=== PATIENT | male | born 1960 | race Caucasian/White ===

== ENCOUNTER 2020-04-30 16:45 | Inpatient (IN) ==
[2020-04-30] MEDS ORDERED: 0.9 % Sodium Chloride 1,000 ML ONE (16:59)
[2020-04-30] MEDS ORDERED: *HR* Heparin 10,000 UNIT/10 ML VIAL ONE (16:59)
[2020-04-30] MEDS ORDERED: Heparin 1,000 UNITS/500 mL 500 ML ONE (16:59)
[2020-04-30] MEDS ORDERED: Nitroglycerin 1,000 MCG/10 ML VIAL IV ONE (17:00)
[2020-04-30] MEDS ORDERED: ISOVUE-370 200 ML INFUS..BTL ONE (17:00)
[2020-04-30] MEDS ORDERED: *HR* Midazolam HCl 2 MG/2 ML VIAL ONE (17:47)
[2020-04-30] MEDS ORDERED: *HR* FentaNYL (PF) 100 MCG/2 ML VIAL ONE (17:47)
[2020-04-30] MEDS ORDERED: Tirofiban 12.5 MG/250ML 12.5 MG/250 ML BAG ONE (17:47)
[2020-04-30] MEDS ORDERED: Naloxone 0.4 MG/ML INJ IVP PRN (21:41)
[2020-04-30] MEDS ORDERED: *HR* Heparin 5,000 UNIT/ML VIAL IVP ONE (21:50)
[2020-04-30] MEDS ORDERED: *HR* Heparin 5,000 UNIT/ML VIAL IVP PRN ×2 (21:50)
[2020-04-30] MEDS ORDERED: Potassium Chloride Elixir 20 MEQ/15 ML UDC PO ONE (21:54)
[2020-04-30] MEDS ORDERED: Potassium Phosphate 44 MEQ in 0.9 % Sodium Chloride 250 ML IVPB PRN (21:55)
[2020-04-30] MEDS: Heparin 25,000UNIT/250ML 1/2NS 25,000 UNIT/250 ML IV.SOLN IVC SCH (23:00)
[2020-04-30] MEDS: *HR* OxyCODONE/APAP 5/325 TABLET PO PRN (23:08)
[2020-05-01] MEDS: *HR* OxyCODONE/APAP 5/325 TABLET PO PRN ×4 (05:59→20:39)
[2020-05-01 06:48] LABS: Basophils # 0.1 K/mcL (0.0-0.2); Basophils % 0.6 %; Eosinophils # 0.3 K/mcL (0.0-0.6); Eosinophils % 2.5 %; Hematocrit 36.3 % (37.5-50.1); Hemoglobin 12.7 g/dL (12.9-16.9); Immature Granulocytes % 0.3 % (0-4); Lymphocytes # 2.7 K/mcL (0.6-4.6); Lymphocytes % 27.4 %; Mean Corpuscular Hemoglobin 32.5 pg (28.0-33.3); Mean Corpuscular Volume 92.8 fL (83.0-100.0); Mean Platelet Volume 9.7 fL (9.4-12.4); Monocytes # 0.8 K/mcL (0.0-1.3); Monocytes % 8.4 %; Neutrophils # 6.1 K/mcL (1.6-8.9); Platelet Count 296 K/mcL (140-400); Red Blood Count 3.91 M/mcL (4.19-5.50); Red Cell Distribution Width 12.5 % (11.5-14.5); Segmented Neutrophils % 60.8 %
[2020-05-01 06:51] LABS: VBG Ionized Calcium 1.08 mmol/L (1.15-1.35)
[2020-05-01 06:54] LABS: Prothrombin Time 12.1 Seconds (9.4-12.1)
[2020-05-01 06:56] LABS: Activated Partial Thrombo Time 79.5 Seconds (26.0-36.0)
[2020-05-01 07:10] LABS: Alanine Aminotransferase 34 Units/L (7-52); Albumin/Globulin Ratio 1.6 (1.1-2.2); Alkaline Phosphatase 53 Units/L (34-104); Aspartate Amino Transferase 186 Units/L (13-39); BUN/Creatinine Ratio 10 (6-26); Bilirubin,Total 0.5 mg/dL (0.3-1.0); Blood Urea Nitrogen 8 mg/dL (8-23); Calcium 9.3 mg/dL (8.6-10.3); Carbon Dioxide 26 mEq/L (23-29); Chloride 98 mEq/L (98-107); Globulin 2.5 g/dL (2.4-3.5); Glucose 143 mg/dL (70-105); Magnesium 1.8 mg/dL (1.6-2.6); Osmolality,Calculated 277 (280-300); Potassium 3.8 mEq/L (3.5-5.1); Sodium 133 mEq/L (136-145); Total Protein 6.5 g/dL (6.4-8.9); eGFR For African Americans > 60 (> 60); eGFR For Non-African Americans > 60 (> 60)
[2020-05-01 07:22] LABS: Thyroid Stimulating Hormone 1.326 mcIU/mL (0.340-5.600)
[2020-05-01] MEDS ORDERED: Perflutren Lipid Microsphere 1.3 ML in 0.9 % Sodium Chloride 8.7 ML IVP PRN (07:43)
[2020-05-01] MEDS: Calcium Gluconate 1gm/50mL 1 GM/50 ML BAG IVPB PRN (08:17)
[2020-05-01 09:34] LABS: Estimated Average Glucose 143 mg/dl; Hemoglobin A1C 6.6 %
[2020-05-01] MEDS ORDERED: Heparin 1,000 UNITS/500 mL 500 ML ONE (12:02)
[2020-05-01] MEDS ORDERED: Nitroglycerin 1,000 MCG/10 ML VIAL IV ONE (12:02)
[2020-05-01] MEDS ORDERED: ISOVUE-370 200 ML INFUS..BTL ONE (12:02)
[2020-05-01] MEDS ORDERED: 0.9 % Sodium Chloride 2,000 ML ONE (12:02)
[2020-05-01] MEDS ORDERED: *HR* Heparin 10,000 UNIT/10 ML VIAL ONE (12:02)
[2020-05-01] MEDS ORDERED: *HR* Midazolam HCl 2 MG/2 ML VIAL ONE (12:07)
[2020-05-01] MEDS ORDERED: *HR* FentaNYL (PF) 100 MCG/2 ML VIAL ONE (12:08)
[2020-05-01] MEDS ORDERED: *HR* Ticagrelor 90 MG TABLET ONE (13:40)
[2020-05-01] MEDS ORDERED: Tirofiban 12.5 MG/250ML 12.5 MG/250 ML BAG IVC SCH (14:00)
[2020-05-01] MEDS: Metoprolol XL (24 HR) Succ 25 MG TAB.ER.24H PO SCH (16:46)
[2020-05-01] MEDS: *HR* Ticagrelor 90 MG TABLET PO SCH (20:39)
[2020-05-01] MEDS: Heparin 25,000UNIT/250ML 1/2NS 25,000 UNIT/250 ML IV.SOLN IVC SCH (20:50)
[2020-05-02] MEDS: *HR* OxyCODONE/APAP 5/325 TABLET PO PRN (01:59)
[2020-05-02 03:55] LABS: VBG Ionized Calcium 1.03 mmol/L (1.15-1.35)
[2020-05-02 03:57] LABS: Basophils # 0.1 K/mcL (0.0-0.2); Basophils % 0.7 %; Eosinophils # 0.3 K/mcL (0.0-0.6); Eosinophils % 3.2 %; Hematocrit 33.8 % (37.5-50.1); Hemoglobin 11.9 g/dL (12.9-16.9); Immature Granulocytes % 0.2 % (0-4); Lymphocytes # 2.7 K/mcL (0.6-4.6); Lymphocytes % 25.9 %; Mean Corpuscular HGB Conc 35.2 g/dL (31.6-35.5); Mean Corpuscular Hemoglobin 32.9 pg (28.0-33.3); Mean Corpuscular Volume 93.4 fL (83.0-100.0); Mean Platelet Volume 9.5 fL (9.4-12.4); Monocytes # 0.9 K/mcL (0.0-1.3); Monocytes % 8.6 %; Neutrophils # 6.4 K/mcL (1.6-8.9); Platelet Count 276 K/mcL (140-400); Red Blood Count 3.62 M/mcL (4.19-5.50); Red Cell Distribution Width 12.7 % (11.5-14.5); Segmented Neutrophils % 61.4 %; White Blood Count 10.4 K/mcL (4.3-11.1)
[2020-05-02 04:43] LABS: BUN/Creatinine Ratio 15 (6-26); Blood Urea Nitrogen 12 mg/dL (8-23); Calcium 8.8 mg/dL (8.6-10.3); Carbon Dioxide 25 mEq/L (23-29); Chloride 102 mEq/L (98-107); Glucose 106 mg/dL (70-105); Magnesium 1.8 mg/dL (1.6-2.6); Osmolality,Calculated 280 (280-300); Sodium 135 mEq/L (136-145); eGFR For African Americans > 60 (> 60); eGFR For Non-African Americans > 60 (> 60)
[2020-05-02] MEDS: Calcium Gluconate 1gm/50mL 1 GM/50 ML BAG IVPB PRN (04:51)
[2020-05-02] MEDS: *HR* Ticagrelor 90 MG TABLET PO SCH (07:56)
[2020-05-02] MEDS: Metoprolol XL (24 HR) Succ 25 MG TAB.ER.24H PO SCH (07:56)
[2020-05-02] MEDS ORDERED: Aspirin 81 MG TAB.CHEW PO SCH (09:00)
[2020-05-02 11:07] LABS: VBG Ionized Calcium 1.19 mmol/L (1.15-1.35)
[2020-05-02] MEDS ORDERED: Apixaban 5 MG TABLET PO SCH ×2 (11:15→21:00)
[2020-05-02] MEDS ORDERED: *HR* OxyCODONE/APAP 5/325 TABLET PO PRN ×2 (12:58→20:40)
[2020-05-02] MEDS ORDERED: Naloxone 0.4 MG/ML INJ IVP PRN ×2 (12:58→20:40)
[2020-05-02] MEDS ORDERED: Calcium Gluconate 1gm/50mL 1 GM/50 ML BAG IVPB PRN (12:58)
[2020-05-02] MEDS ORDERED: Potassium Phosphate 44 MEQ in 0.9 % Sodium Chloride 250 ML IVPB PRN (12:58)
[2020-05-02] MEDS: Apixaban 5 MG TABLET PO SCH ×2 (13:37→20:19)
[2020-05-02 14:08] LABS: Chol/HDL Ratio 6.3 (0-4.9); Cholesterol 202 mg/dL (< 200); HDL Cholesterol 32 mg/dL (40-59); LDL Cholesterol,Calculated 146 mg/dL (< 100); Triglycerides 120 mg/dL (< 150)
[2020-05-02] MEDS ORDERED: *HR* Ticagrelor 90 MG TABLET PO SCH ×2 (21:00)
[2020-05-03 04:27] LABS: Basophils # 0.1 K/mcL (0.0-0.2); Basophils % 0.7 %; Eosinophils # 0.5 K/mcL (0.0-0.6); Eosinophils % 4.5 %; Hematocrit 36.4 % (37.5-50.1); Hemoglobin 12.6 g/dL (12.9-16.9); Immature Granulocytes % 0.3 % (0-4); Lymphocytes # 2.1 K/mcL (0.6-4.6); Mean Corpuscular HGB Conc 34.6 g/dL (31.6-35.5); Mean Corpuscular Hemoglobin 32.6 pg (28.0-33.3); Mean Corpuscular Volume 94.3 fL (83.0-100.0); Mean Platelet Volume 9.5 fL (9.4-12.4); Monocytes # 0.9 K/mcL (0.0-1.3); Monocytes % 8.5 %; Neutrophils # 7.4 K/mcL (1.6-8.9); Platelet Count 302 K/mcL (140-400); Red Blood Count 3.86 M/mcL (4.19-5.50); Red Cell Distribution Width 12.5 % (11.5-14.5)
[2020-05-03 04:48] LABS: BUN/Creatinine Ratio 15 (6-26); Blood Urea Nitrogen 12 mg/dL (8-23); Calcium 9.5 mg/dL (8.6-10.3); Carbon Dioxide 24 mEq/L (23-29); Chloride 103 mEq/L (98-107); Glucose 109 mg/dL (70-105); Magnesium 1.6 mg/dL (1.6-2.6); Osmolality,Calculated 282 (280-300); Potassium 3.9 mEq/L (3.5-5.1); Sodium 136 mEq/L (136-145); eGFR For African Americans > 60 (> 60); eGFR For Non-African Americans > 60 (> 60)
[2020-05-03] MEDS ORDERED: Apixaban 5 MG TABLET PO SCH (09:00)
[2020-05-03] MEDS ORDERED: Metoprolol XL (24 HR) Succ 25 MG TAB.ER.24H PO SCH ×2 (09:00)
[2020-05-03] MEDS ORDERED: *HR* Ticagrelor 90 MG TABLET PO SCH (09:00)
[2020-05-03] MEDS ORDERED: Aspirin 81 MG TAB.CHEW PO SCH ×2 (09:00)
[2020-05-03 10:57] VITALS: BP 112/74
== END 2020-05-03 14:30 | disposition home or self-care (01) | DRG 246 ==
LOC: ICNU 17:51
PROVIDERS: ADMIT Internal Medicine Cardiovascular Disease; ATTEND Internal Medicine Cardiovascular Disease